=== PATIENT | male | born 1975 | race African-American/Black ===

== ENCOUNTER 2020-11-15 23:57 | Emergency (ER) | payer BC, SELFPAY ==
[2020-11-16] MEDS ORDERED: Boostrix 0.5 ML (Tdap) VIAL ONE (00:55)
== END 2020-11-16 01:15 | disposition left against medical advice (07) ==
LOC: NAV ERS 23:57
DX: S62.336B Displaced fracture of neck of fifth metacarpal bone, right hand, initial encounter for open fracture (principal); F17.210 Nicotine dependence, cigarettes, uncomplicated; Z23 Encounter for immunization; W23.0XXA Caught, crushed, jammed, or pinched between moving objects, initial encounter
CPT/HCPCS: 26600; 90471; 90715

== ENCOUNTER 2021-04-22 17:48 | Emergency (ER) | payer BC ==
[2021-04-22] MEDS ORDERED: Ibuprofen 200 MG TAB ONE (18:29)
[2021-04-23 11:55] LABS: SARS-CoV-2 PCR by NAA DETECTED (NotDetected)
== END 2021-04-22 19:13 | disposition home or self-care (01) ==
LOC: NAV ERS 17:48
DX: U07.1 COVID-19 (principal); F17.210 Nicotine dependence, cigarettes, uncomplicated
CPT/HCPCS: 87804; 99284; U0003; U0005

== ENCOUNTER 2022-02-01 08:13 | Emergency (ER) | payer SELFPAY | END 2022-02-01 09:40 | disposition home or self-care (01) | LOC: NAV ERS 08:13 | DX: G57.62 Lesion of plantar nerve, left lower limb (principal); D22.72 Melanocytic nevi of left lower limb, including hip; F17.210 Nicotine dependence, cigarettes, uncomplicated ==

== ENCOUNTER 2022-03-09 07:21 | Emergency (ER) | payer SELFPAY ==
[2022-03-09] MEDS ORDERED: Ondansetron ODT 4 MG TAB ONE (08:20)
[2022-03-09] MEDS ORDERED: Ibuprofen 200 MG TAB ONE (08:20)
== END 2022-03-09 08:45 | disposition home or self-care (01) ==
LOC: NAV ERS 07:21
DX: M79.10 Myalgia, unspecified site (principal); K21.9 Gastro-esophageal reflux disease without esophagitis; F17.210 Nicotine dependence, cigarettes, uncomplicated; Z20.822 Contact with and (suspected) exposure to COVID-19
CPT/HCPCS: 87804; 99283; Q0162; U0003; U0005

== ENCOUNTER 2022-07-05 10:25 | Emergency (ER) | payer BC, SELFPAY ==
[2022-07-05 11:44] LABS: ALT (SGPT) 190 U/L (8-55); AST (SGOT) 200 U/L (5-34); Acetaminophen Less than 10.0 mcg/mL (10.0-30.0); Alcohol Less than 10 mg/dL (Less than 10); Alkaline Phosphatase 60 U/L (40-110); Anion Gap 14 mmol/L (10-20); BUN (Urea Nitrogen) 11 mg/dL (8.9-20.6); Bilirubin, Total 0.6 mg/dL (0.2-1.2); CK (CPK) 1257 U/L (30-200); Calc. Creatinine Clearance 0 mL/min (70-130); Calcium 9.6 mg/dL (7.8-10.44); Carbon Dioxide 24 mmol/L (22-29); Chloride 105 mmol/L (98-107); Estimated GFR 110; Globulin 3.3 g/dL (2.4-3.5); Glucose 97 mg/dL (70-105); Magnesium 1.9 mg/dL (1.6-2.6); Potassium 4.2 mmol/L (3.5-5.1); Protein, Total 7.3 g/dL (6.0-8.3); Salicylate Less than 8.0 mg/dL (15.0-30.0); Sodium 139 mmol/L (136-145)
[2022-07-05 12:09] LABS: Anisocytosis SLIGHT = 6-15 cells (100X) (0-5/hpf); Band 1 % (5-11); Eosinophils 2 % (0-10); Hemoglobin 13.9 g/dL (14.0-18.0); Lymphocytes 15 % (21-51); MDiff Complete? YES; Mean Corpuscular HGB CONC 30.7 g/dL (32.0-36.0); Mean Corpuscular Hemoglobin 24.2 pg (27.0-31.0); Mean Corpuscular Volume 78.8 fl (78.0-98.0); Mean Platelet Volume 7.4 fL (7.4-10.4); Monocytes 8 % (0-10); Neutrophil 72 % (42-75); Platelet Count 186 10x3/uL (130-400); Platelet Morphology Comment Appears Adequate; Poikilocytosis SLIGHT = 6-15 cells (100X) (0-5/hpf); RBC Distribution Width 14.2 % (11.5-14.5); Reactive Lymphocytes 2 % (0-10); Red Blood Cell (RBC) Count 5.76 mill/uL (4.70-6.10); Target Cells MARKED = >16 cells (100X) (0-1/hpf); Tear Drops SLIGHT = 2-5 cells (100X) (0-1/hpf)
[2022-07-05 12:10] LABS: White Blood Cell (WBC) Count 5.2 10x3/uL (4.8-10.8)
[2022-07-05] MEDS ORDERED: Sodium Chloride 0.9% 2,000 ML ONE (12:10)
[2022-07-05 12:58] LABS: Bilirubin Negative (Negative); Blood, Urine Trace (Negative); Clarity Clear (Clear); Glucose, Urine (Dipstick) Negative (Negative); Ketone, Urine 15 mg/dL (Negative); Leukocyte Trace (Negative); Nitrite Negative (Negative); Protein, Urine (Dipstick) Negative (Neg-Trace); Specific Gravity, Urine 1.025 (1.005-1.030); Urobilinogen 0.2 mg/dL (Less than 2); pH, Urine 5.5 (5.0-9.0)
[2022-07-05 13:08] LABS: Amphetamine Not Detected (NotDetected); Barbiturates Screen Not Detected (NotDetected); Benzodiazepine Screen Not Detected (NotDetected); Cocaine Metabolite Screen Detected (NotDetected); Medtox Control Line Valid? VALID (VALID); Methadone Not Detected (NotDetected); Methamphetamine Not Detected (NotDetected); Opiate Screen Not Detected (NotDetected); Oxycodone Screen Not Detected (NotDetected); Phencyclidine (PCP) Not Detected (NotDetected); THC/Cannabinoid Screen Not Detected (NotDetected); Tricyclic Screen Not Detected (NotDetected)
[2022-07-05 13:19] LABS: RBC/HPF None Seen HPF (0-3); WBC/HPF 0-3 HPF (0-3)
== END 2022-07-05 14:40 | disposition home or self-care (01) ==
LOC: NAV ERS 10:25
DX: R53.1 Weakness (principal); F14.10 Cocaine abuse, uncomplicated; M62.82 Rhabdomyolysis; K21.9 Gastro-esophageal reflux disease without esophagitis; F17.210 Nicotine dependence, cigarettes, uncomplicated; Z79.899 Other long term (current) drug therapy
CPT/HCPCS: 80053; 80306; 80307; 81003; 81015; 82550; 83605; 83690; 83735; 84443; 84484; 85025; 86140; 93005; 96360; 96361; J7050